=== PATIENT | male | born 1990 | race Caucasian/White ===

== ENCOUNTER 2020-04-09 14:45 | Emergency (ER) | payer MEDICAID, SELFPAY ==
[~2020-04-09] VITALS: Ht 170.2 cm; Wt 96.2 kg
[2020-04-09 14:51] VITALS: Ht 170.2 cm; Wt 96.2 kg
[2020-04-09 15:34] LABS: BASOPHIL % 0.5 % (0-2); PLATELET COUNT 288 x10^3mcL (130-400); RED CELL DISTRIBUTION WIDTH 12.3 % (11.5-14.5)
[2020-04-09 15:38] LABS: CALCIUM 9.3 mg/dL (8.5-10.1); CARBON DIOXIDE 31.9 mmol/L (21-32); CHLORIDE SERUM 103 mmol/L (98-107); GFR1 > 60 mL/min; GLUCOSE SERUM 117 mg/dL (74-106); POTASSIUM SERUM 3.8 mmol/L (3.5-5.1); SODIUM SERUM 141 mmol/L (136-145)
[2020-04-09 15:43] LABS: ALBUMIN 4.1 g/dL (3.4-5.0); ALKALINE PHOSPHATASE 74 U/L (46-116); ALT/SGPT 49 U/L (16-63); AST/SGOT 32 U/L (15-37); BILIRUBIN TOTAL 0.75 mg/dL (0.20-1.00); TOTAL PROTEIN, SERUM 7.7 g/dL (6.4-8.2)
[2020-04-09 17:31] VITALS: BP 120/79
== END 2020-04-09 17:31 | disposition home or self-care (01) ==
LOC: ED 14:45
PROVIDERS: Specialist
DX: J40 Bronchitis, not specified as acute or chronic (principal); Z20.828 Contact with and (suspected) exposure to other viral communicable diseases
CPT/HCPCS: 36415